=== PATIENT | female | born 1960 | race Caucasian/White ===

== ENCOUNTER → 2017-12-23 | Outpatient (CLI) | payer OTHER ==
--- NOTE | 2017-12-23 15:12 | CT ---
EXAMINATION TYPE: CT abdomen w con DATE OF EXAM: 12/23/2017 COMPARISON: NONE HISTORY: Right upper quadrant pain, fatty liver CT DLP: 2040.0 mGycm CONTRAST: CT scan of the abdomen is performed with Oral Contrast and with IV Contrast, patient injected with 10 0 mL of Omnipaque 300. FINDINGS: LUNG BASES-: No visible nodule. No infiltrate. LIVER/GB: No calcified gallstones. No space occupying hepatic lesion. Biliary tree is of normal ca liber. PANCREAS: No inflammation. No distinct mass. SPLEEN: No splenic enlargement. No lesion seen. ADRENALS: No nodule. No thickening. KIDNEYS/BLADDER: No hydronephrosis. No nephrolithiasis. No distinct renal mass. Urinary bladder g rossly unremarkable. BOWEL: Visualized bowel loops appear to be caliber. No evidence for inflammatory process or free air. Small sliding-type hiatal hernia noted. LYMPH NODES: No greater than 1cm abdominal or pelvic lymph nodes are appreciated. AORTA: No significant abnormality. OSSEOUS STRUCTURES: No significant abnormality is seen. OTHER: No significant additional abnormality is seen. IMPRESSION: 1. Small sliding-type hiatal hernia noted.
== END | disposition home or self-care (01) ==
LOC: RADCTMAIN 13:41
PROVIDERS: ATTEND Family Medicine
DX: K44.9 Diaphragmatic hernia without obstruction or gangrene (principal)
CPT/HCPCS: 74160; Q9967

== ENCOUNTER 2018-03-27 11:40 | Day surgery (SDC) | payer OTHER ==
[2018-03-26 11:56] VITALS: BMI 46.5
[~2018-03-27 11:40] MED LIST: LACTATED RINGERS 1,000 ML IV SCH
--- NOTE | 2018-03-27 11:42 | P.GSHP ---
History of Present Illness H&P Date: 03/27/18 CHIEF COMPLAINT: Colon screen HISTORY OF PRESENT ILLNESS: The patient is a 57-year-old female who presents for colon screen. Lower endoscopy was offered for further evaluation and management. PAST MEDICAL HISTORY: Please see list. PAST SURGICAL HISTORY: Please see list. MEDICATIONS: Please see list. ALLERGIES: Please see list. SOCIAL HISTORY: No illicit drug use FAMILY HISTORY: No reports of Crohn disease or ulcerative colitis. REVIEW OF ORGAN SYSTEMS: CONSTITUTIONAL: No reports of fevers or chills. PHYSICAL EXAM: VITAL SIGNS: Stable GENERAL: Well-developed pleasant in no acute distress. HEENT: No scleral icterus. Extraocular movements grossly intact. Moist buccal mucosa. NECK: Supple without lymphadenopathy. CHEST: Unlabored respirations. Equal bilateral excursions. CARDIOVASCULAR: Regular rate and rhythm. Distal 2+ pulses. ABDOMEN: Soft, nontender, nondistended. MUSCULOSKELETAL: No clubbing, cyanosis, or edema. ASSESSMENT: 1. Colon screen. PLAN: 1. Recommend proceeding with a lower endoscopy Past Medical History Past Medical History: Asthma, GERD/Reflux, Hypertension Additional Past Medical History / Comment(s): fatty liver History of Any Multi-Drug Resistant Organisms: None Reported Past Surgical History: Appendectomy Past Anesthesia/Blood Transfusion Reactions: No Reported Reaction Smoking Status: Former smoker - Past Family History Father Additional Family Medical History / Comment(s): hx 50 colon polyps Mother Family Medical History: Dementia, Hypertension Medications and Allergies Home Medications Medication Instructions Recorded Confirmed Type Escitalopram [Lexapro] 20 mg PO QAM 09/16/14 03/26/18 History Hydrochlorothiazide [Hydrodiuril] 25 mg PO DAILY 09/16/14 03/26/18 History Omeprazole [PriLOSEC] 20 mg PO AC-BRKFST 09/16/14 03/26/18 History amLODIPine [Norvasc] 5 mg PO QAM 09/16/14 03/26/18 History Albuterol Sulfate [Proair Hfa] 1 - 2 puff INHALATION Q6HR PRN 03/26/18 03/26/18 History Cholecalciferol (Vitamin D3) 2,000 unit PO DAILY 03/26/18 03/26/18 History [Vitamin D3] Naltrexone HCl/Bupropion HCl 1 each PO DAILY 03/26/18 03/26/18 History [Contrave ER 8-90 mg Tablet] [place]-3 Fatty Acids/Fish Oil [Fish 1 tab PO DAILY 03/26/18 03/26/18 History Oil 1,000 mg Softgel] Vitamin E (Dl,Tocopheryl Acet) 400 unit PO DAILY 03/26/18 03/26/18 History [Vitamin E] rOPINIRole HCL [Requip] 0.25 mg PO HS 03/26/18 03/26/18 History Allergies Allergy/AdvReac Type Severity Reaction Status Date / Time No Known Allergies Allergy Verified 03/26/18 11:46
[2018-03-27 12:13] VITALS: TEMP 98.8
[2018-03-27] MEDS ORDERED: LIDOCAINE 1% INJ 10MG/ML (20 ML MDV) ONE (12:40)
[2018-03-27] MEDS ORDERED: PROPOFOL 10 MG/ML 20 ML VIAL IV ONE (12:40)
--- NOTE | 2018-03-27 13:09 | P.PCN ---
Date of Procedure: 03/27/18 Description of Procedure: PREOPERATIVE DIAGNOSIS: Colonoscopy screening. Family history of colon cancer Personal history of polyps POSTOPERATIVE DIAGNOSIS: Colonoscopy screening. Family history of colon cancer Personal history of polyps Sigmoid polyp adenoma OPERATION: Colonoscopy to the ileocecal valve and appendiceal orifice. Colonoscopy with cold biopsy forcep at 25 cm. SURGEON: Leisa Moreno MD. ANESTHESIA: MAC. INDICATIONS: The patient is a 57-year-old female who presents for colonoscopy screening. Last colonoscopy was 5 years ago. Benefits and risks were described and informed consent was obtained. DESCRIPTION OF PROCEDURE: The patient had undergone Gatorade, MiraLAX and Dulcolax prep. She had been brought into the operating room and laid in the left lateral decubitus position. After adequate intravenous sedation, the rectum was examined with 2% lidocaine jelly. No external hemorrhoids were encountered. The rectal tone was within normal limits. No lesions were palpated in the rectal vault. An Olympus colonoscope was advanced until the ileocecal valve and appendiceal orifice were clearly viewed. The prep was adequate with moderate liquid stool requiring irrigation. The scope was removed with visualization of mucosal fold. No scattered diverticulosis was encountered. Sigmoid adenoma polyp 3 mm found at 25 cm from anal verge and removed using cold biopsy forcep. No evidence of focal colitis was found. Retroflexion of the scope demonstrated no grade 1 internal hemorrhoids. The colon was desufflated. The patient had tolerated the procedure well. Withdrawal time was over 6 minutes. FINDINGS: No internal hemorrhoids. No external prolapsed hemorrhoids. No arteriovenous malformations. Sigmoid adenoma polyp 3 mm found at 25 cm from anal verge and removed using cold biopsy forceps. No focal colitis. No sigmoid diverticulosis RECOMMENDATIONS: Laparoscope repeat, 3 years, 2020 Plan - Discharge Summary New Discharge Prescriptions: No Action amLODIPine [Norvasc] 5 mg PO QAM Omeprazole [PriLOSEC] 20 mg PO AC-BRKFST Hydrochlorothiazide [Hydrodiuril] 25 mg PO DAILY Escitalopram [Lexapro] 20 mg PO QAM Cholecalciferol (Vitamin D3) [Vitamin D3] 2,000 unit PO DAILY Albuterol Sulfate [Proair Hfa] 1 - 2 puff INHALATION Q6HR PRN PRN Reason: sob rOPINIRole HCL [Requip] 0.25 mg PO HS [place]-3 Fatty Acids/Fish Oil [Fish Oil 1,000 mg Softgel] 1 tab PO DAILY Naltrexone HCl/Bupropion HCl [Contrave ER 8-90 mg Tablet] 1 each PO DAILY Vitamin E (Dl,Tocopheryl Acet) [Vitamin E] 400 unit PO DAILY Discharge Medication List Escitalopram [Lexapro] 20 mg PO QAM 09/16/14 [History] Hydrochlorothiazide [Hydrodiuril] 25 mg PO DAILY 09/16/14 [History] Omeprazole [PriLOSEC] 20 mg PO AC-BRKFST 09/16/14 [History] amLODIPine [Norvasc] 5 mg PO QAM 09/16/14 [History] Albuterol Sulfate [Proair Hfa] 1 - 2 puff INHALATION Q6HR PRN 03/26/18 [History] Cholecalciferol (Vitamin D3) [Vitamin D3] 2,000 unit PO DAILY 03/26/18 [History] Naltrexone HCl/Bupropion HCl [Contrave ER 8-90 mg Tablet] 1 each PO DAILY [History] [place]-3 Fatty Acids/Fish Oil [Fish Oil 1,000 mg Softgel] 1 tab PO DAILY [History] Vitamin E (Dl,Tocopheryl Acet) [Vitamin E] 400 unit PO DAILY 03/26/18 [History] rOPINIRole HCL [Requip] 0.25 mg PO HS 03/26/18 [History]
[2018-03-27 13:21] VITALS: BP 137/77; PULSE 72; RESP 16
== END 2018-03-27 13:48 | disposition home or self-care (01) ==
LOC: ORWHC2ENDO 11:40
PROVIDERS: ATTEND Surgery Plastic and Reconstructive Surgery
DX: Z12.11 Encounter for screening for malignant neoplasm of colon (principal); D12.5 Benign neoplasm of sigmoid colon; Z86.010 Personal history of colon polyps; Z83.71 Family history of colonic polyps; J45.909 Unspecified asthma, uncomplicated; K21.9 Gastro-esophageal reflux disease without esophagitis; I10 Essential (primary) hypertension; K76.0 Fatty (change of) liver, not elsewhere classified; G47.33 Obstructive sleep apnea (adult) (pediatric); Z99.89 Dependence on other enabling machines and devices; Z79.899 Other long term (current) drug therapy; Z87.891 Personal history of nicotine dependence
CPT/HCPCS: 88305; 45380; J2001; J2704

== ENCOUNTER → 2020-06-06 | Outpatient (CLI) | payer OTHER ==
--- NOTE | 2020-06-06 12:52 | MR ---
EXAMINATION TYPE: MR shoulder RT wo con DATE OF EXAM: 06/06/2020 11:54 AM COMPARISON: NONE HISTORY: R shoulder pain TECHNIQUE: Multiplanar multispin echo imaging of the right shoulder was performed. FINDINGS: Rotator cuff : Thickening and heterogeneity of the supraspinatus tendon with chronic tendinopathy. No evidence for partial or full-thickness tear at this time. The subscapularis constituent of the rotat or cuff is intact. Bursa: No bursal effusion or thickening is seen. Musculature: There is no muscular tear, contusion, or atrophy. Acromioclavicular joint : Subacromial spur results in mild impingement. Moderate AC joint arthropathy . Osseous structures : There are no fractures or regions of abnormal bone marrow signal intensity. Cyst ic degenerative change of the greater tuberosity. Long biceps tendon : The biceps tendon is normally situated within the bicipital groove. No complete or partial biceps tendon tear is present. Glenohumeral Joint fluid : There is no glenohumeral joint effusion. Cartilage and Bone : No focal hyaline cartilage defects are noted. No Hill-Sachs, reverse Hill-Sachs, or bony Bankart lesions are seen. Labrum : There are no SLAP or soft tissue Bankart lesions. No paralabral cysts are seen. OTHER FINDINGS : none IMPRESSION: 1. Chronic tendinopathy supraspinatus tendon secondary to a mild impingement.
== END | disposition home or self-care (01) ==
LOC: RADMRIMAIN 11:16
PROVIDERS: ATTEND Orthopaedic Surgery
DX: M75.81 Other shoulder lesions, right shoulder (principal); M75.41 Impingement syndrome of right shoulder

== ENCOUNTER 2020-06-13 01:34 | Emergency (ER) | payer OTHER ==
[2020-06-13 01:41] VITALS: TEMP 98.2
[2020-06-13] MEDS ORDERED: SODIUM CHLORIDE 0.9% 500 ML 500 ML IV STA (02:05)
[2020-06-13 02:13] LABS: Basophils # (A) 0.1 k/uL (0-0.2); Basophils % (A) 1 %; Eosinophils # (A) 0.3 k/uL (0-0.7); Eosinophils % (A) 3 %; HCT 44.6 % (34.0-46.0); HGB 14.7 gm/dL (11.4-16.0); Lymphocytes # (A) 4.5 k/uL (1.0-4.8); Lymphocytes % (A) 41 %; MCH 30.5 pg (25.0-35.0); MCHC 33.1 g/dL (31.0-37.0); MCV 92.3 fL (80.0-100.0); Mean Platelet Volume 8.6; Monocytes # (A) 0.5 k/uL (0-1.0); Monocytes % (A) 5 %; Neutrophils # (A) 5.3 k/uL (1.3-7.7); Neutrophils % (A) 48 %; Platelet Count 257 k/uL (150-450); RBC 4.83 m/uL (3.80-5.40); WBC 10.8 k/uL (3.8-10.6)
--- NOTE | 2020-06-13 02:13 | ED ---
General Adult HPI - General Source: patient, RN notes reviewed Mode of arrival: wheelchair Limitations: no limitations <Stiven Pace P - Last Filed: 06/13/20 02:15> <Keyla Guajardo P - Last Filed: 06/13/20 05:42> - General Chief complaint: Chest Pain Stated complaint: high b/p, shakes Time Seen by Provider: 06/13/20 01:42 - History of Present Illness Initial comments: 59-year-old female with a past medical history of asthma, GERD, hypertension presents to the emergency department for a chief complaint of chest pain. Patient states prior to arrival she had a sudden onset left-sided sharp chest pain that lasted about 15 minutes. Patient states afterwards she started shaking uncontrollably. She checked her temperature and it was 100.2. 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 She denies shortness of breath. Patient reports she checked her bl ood pressure and it was high. She did not take one of her blood pressure medications today.Patient has no other complaints at this time including shortness of breath, abdominal pain, nausea or vomiting, headache, or visual changes. (Stiven Pace) - Related Data Home Medications Medication Instructions Recorded Confirmed Escitalopram [Lexapro] 20 mg PO QAM 09/16/14 03/27/18 Omeprazole [PriLOSEC] 20 mg PO AC-BRKFST 09/16/14 03/27/18 amLODIPine [Norvasc] 5 mg PO QAM 09/16/14 03/27/18 hydroCHLOROthiazide [Hydrodiuril] 25 mg PO DAILY 09/16/14 03/27/18 Albuterol Sulfate [Proair Hfa] 1 - 2 puff INHALATION Q6HR PRN 03/26/18 03/27/18 Cholecalciferol (Vitamin D3) 2,000 unit PO DAILY 03/26/18 03/26/18 [Vitamin D3] Naltrexone HCl/Bupropion HCl 1 each PO DAILY 03/26/18 03/27/18 [Contrave ER 8-90 mg Tablet] [place]-3 Fatty Acids/Fish Oil [Fish 1 tab PO DAILY 03/26/18 03/26/18 Oil 1,000 mg Softgel] Vitamin E (Dl,Tocopheryl Acet) 400 unit PO DAILY 03/26/18 03/26/18 [Vitamin E] rOPINIRole HCL [Requip] 0.25 mg PO HS 03/26/18 03/27/18 Allergies Allergy/AdvReac Type Severity Reaction Status Date / Time sulfamethoxazole Allergy Itching Verified 06/13/20 01:41 [From Bactrim] trimethoprim [From Bactrim] Allergy Itching Verified 06/13/20 01:41 Review of Systems ROS Other: All systems not noted in ROS Statement are negative. <Stiven Pace P - Last Filed: 06/13/20 02:15> ROS Other: All systems not noted in ROS Statement are negative. <Keyla Guajardo P - Last Filed: 06/13/20 05:42> ROS Statement: Those systems with pertinent positive or pertinent negative responses have been documented in the HPI. Past Medical History Past Medical History: Asthma, GERD/Reflux, Hypertension History of Any Multi-Drug Resistant Organisms: None Reported Past Surgical History: Appendectomy Additional Past Surgical History / Comment(s): toe Past Psychological History: No Psychological Hx Reported Smoking Status: Current every day smoker Past Alcohol Use History: None Reported Past Drug Use History: None Reported <Stiven Pace P - Last Filed: 06/13/20 02:15> General Exam Limitations: no limitations General appearance: alert, in no apparent distress Head exam: Present: atraumatic, normocephalic, normal inspection Eye exam: Present: normal appearance, PERRL, EOMI. Absent: scleral icterus, conjunctival injection, periorbital swelling ENT exam: Present: normal exam, mucous membranes moist Neck exam: Present: normal inspection, full ROM. Absent: tenderness, meningismus, lymphadenopathy Respiratory exam: Present: normal lung sounds bilaterally. Absent: respiratory distress, wheezes, rales, rhonchi, stridor Cardiovascular Exam: Present: regular rate, normal rhythm, normal heart sounds. Absent: systolic murmur, diastolic murmur, rubs, gallop, clicks GI/Abdominal exam: Present: soft, normal bowel sounds. Absent: distended, tenderness, guarding, rebound, rigid Neurological exam: Present: alert <Stiven Pace P - Last Filed: 06/13/20 02:15> Course Vital Signs 06/13/20 06/13/20 06/13/20 01:38 01:54 02:25 Temperature 98.2 F Pulse Rate 101 H 80 Pulse Rate [ 89 [employer] ] Respiratory 20 18 Rate Blood Pressure 172/81 137/75 O2 Sat by Pulse 98 98 Oximetry 06/13/20 04:53 Temperature Pulse Rate 71 Pulse Rate [ [employer] ] Respiratory 18 Rate Blood Pressure 118/69 O2 Sat by Pulse 95 Oximetry EKG Findings - EKG Comments: EKG Findings:: normal sinus rhythm, ventricular rate 79, OH interval 150, QTC of 447 <Stiven Pace P - Last Filed: 06/13/20 02:15> Medical Decision Making - Lab Data Result diagrams: 06/13/20 01:58 <Stiven Pace - Last Filed: 06/13/20 02:15> - Lab Data Result diagrams: 06/13/20 01:58 06/13/20 01:58 <Keyla Guajardo - Last Filed: 06/13/20 05:42> - Medical Decision Making Patient care was signed out to me at end of shift, the 59-year-old female who presented here with and episode of sharp left sided chest pain, fever and hypertension. 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 Patients EKG and inital workup is unremarkable, she was asymptomatic in the emergency Department her blood pressure normalized. Patient was agreeable to remaining in the emergency department for 2 troponins. The time of sign out repeat troponin was pending. Repeat troponin resulted was negative. A which the room to discuss results of patient's, patient was sleeping comfortably in no acute distress. Results were discussed repeat vital signs were obtained and discussed with patient. This time she is comfortable with plan for discharge home and continued outpatient follow-up. (Keyla Guajardo) - Lab Data Lab Results 06/13/20 06/13/20 06/13/20 Range/Units 01:58 01:58 01:58 WBC 10.8 H (3.8-10.6) k/uL RBC 4.83 (3.80-5.40) m/uL Hgb 14.7 (11.4-16.0) gm/dL Hct 44.6 (34.0-46.0) % MCV 92.3 (80.0-100.0) fL MCH 30.5 (25.0-35.0) pg MCHC 33.1 (31.0-37.0) g/dL RDW 13.0 (11.5-15.5) % Plt Count 257 (150-450) k/uL Neutrophils % 48 % Lymphocytes % 41 % Monocytes % 5 % Eosinophils % 3 % Basophils % 1 % Neutrophils # 5.3 (1.3-7.7) k/uL Lymphocytes # 4.5 (1.0-4.8) k/uL Monocytes # 0.5 (0-1.0) k/uL Eosinophils # 0.3 (0-0.7) k/uL Basophils # 0.1 (0-0.2) k/uL PT 9.9 (9.0-12.0) sec INR 0.9 (<1.2) APTT 26.4 (22.0-30.0) sec D-Dimer 0.31 (<0.60) mg/L FEU Sodium 135 L (137-145) mmol/L Potassium 3.5 (3.5-5.1) mmol/L Chloride 98 (98-107) mmol/L Carbon Dioxide 29 (22-30) mmol/L Anion Gap 8 mmol/L BUN 12 (7-17) mg/dL Creatinine 0.52 (0.52-1.04) mg/dL Est GFR (CKD-EPI)AfAm >90 (>60 ml/min/1.73 sqM) Est GFR (CKD-EPI)NonAf >90 (>60 ml/min/1.73 sqM) Glucose 131 H (74-99) mg/dL Calcium 9.4 (8.4-10.2) mg/dL Magnesium 1.9 (1.6-2.3) mg/dL Total Bilirubin 0.3 (0.2-1.3) mg/dL AST 24 (14-36) U/L ALT 19 (4-34) U/L Alkaline Phosphatase 80 (38-126) U/L Troponin I (0.000-0.034) ng/mL Total Protein 7.1 (6.3-8.2) g/dL Albumin 4.6 (3.5-5.0) g/dL 06/13/20 06/13/20 Range/Units 01:58 04:53 WBC (3.8-10.6) k/uL RBC (3.80-5.40) m/uL Hgb (11.4-16.0) gm/dL Hct (34.0-46.0) % MCV (80.0-100.0) fL MCH (25.0-35.0) pg MCHC (31.0-37.0) g/dL RDW (11.5-15.5) % Plt Count (150-450) k/uL Neutrophils % % Lymphocytes % % Monocytes % % Eosinophils % % Basophils % % Neutrophils # (1.3-7.7) k/uL Lymphocytes # (1.0-4.8) k/uL Monocytes # (0-1.0) k/uL Eosinophils # (0-0.7) k/uL Basophils # (0-0.2) k/uL PT (9.0-12.0) sec INR (<1.2) APTT (22.0-30.0) sec D-Dimer (<0.60) mg/L FEU Sodium (137-145) mmol/L Potassium (3.5-5.1) mmol/L Chloride (98-107) mmol/L Carbon Dioxide (22-30) mmol/L Anion Gap mmol/L BUN (7-17) mg/dL Creatinine (0.52-1.04) mg/dL Est GFR (CKD-EPI)AfAm (>60 ml/min/1.73 sqM) Est GFR (CKD-EPI)NonAf (>60 ml/min/1.73 sqM) Glucose (74-99) mg/dL Calcium (8.4-10.2) mg/dL Magnesium (1.6-2.3) mg/dL Total Bilirubin (0.2-1.3) mg/dL AST (14-36) U/L ALT (4-34) U/L Alkaline Phosphatase (38-126) U/L Troponin I <0.012 <0.012 (0.000-0.034) ng/mL Total Protein (6.3-8.2) g/dL Albumin (3.5-5.0) g/dL Disposition <Stiven Pace P - Last Filed: 06/13/20 02:15> Is patient prescribed a controlled substance at d/c from ED?: No <Keyla Guajardo P - Last Filed: 06/13/20 05:42> Clinical Impression: Atypical chest pain Disposition: HOME SELF-CARE Condition: Stable Instructions (If sedation given, give patient instructions): Chest Pain (ED) Referrals: Joseph Lyle DO [Primary Care Provider] - 1-2 days
[2020-06-13] MEDS ORDERED: hydroCHLOROthiazide 25 MG TAB PO STA (02:14)
[2020-06-13 02:17] LABS: ALT 19 U/L (4-34); AST 24 U/L (14-36); African American GFR (CKD) >90 (>60 ml/min/1.73 sqM); Albumin 4.6 g/dL (3.5-5.0); Alkaline Phosphatase 80 U/L (38-126); Anion Gap 8 mmol/L; Blood Urea Nitrogen 12 mg/dL (7-17); Calcium 9.4 mg/dL (8.4-10.2); Carbon Dioxide 29 mmol/L (22-30); Chloride 98 mmol/L (98-107); Glucose 131 mg/dL (74-99); Magnesium 1.9 mg/dL (1.6-2.3); Non-African American GFR(CKD) >90 (>60 ml/min/1.73 sqM); Potassium 3.5 mmol/L (3.5-5.1); Sodium 135 mmol/L (137-145); Total Bilirubin 0.3 mg/dL (0.2-1.3); Total Protein 7.1 g/dL (6.3-8.2)
[2020-06-13 02:22] LABS: D-Dimer 0.31 mg/L FEU (<0.60); INR 0.9 (<1.2); Partial Thromboplastin Time 26.4 sec (22.0-30.0); Prothrombin Time 9.9 sec (9.0-12.0)
[2020-06-13 02:27] VITALS: RESP 18
--- NOTE | 2020-06-13 02:28 | XR ---
EXAMINATION TYPE: XR chest 2V DATE OF EXAM: 06/13/2020 COMPARISON: NONE HISTORY: Chest pain TECHNIQUE: FINDINGS: Heart is normal. Lungs are clear of consolidation. There are no hilar masses. Costophrenic angles are clear. Thoracic aorta is atheromatous. IMPRESSION: No active cardiopulmonary disease. Atheromatous aorta.
[2020-06-13 04:53] VITALS: BP 118/69; PULSE 71
== END 2020-06-13 05:35 | disposition home or self-care (01) ==
LOC: EC 01:34
DX: R07.89 Other chest pain (principal); Z20.828 Contact with and (suspected) exposure to other viral communicable diseases; K21.9 Gastro-esophageal reflux disease without esophagitis; I10 Essential (primary) hypertension; J45.909 Unspecified asthma, uncomplicated; F17.200 Nicotine dependence, unspecified, uncomplicated; Z79.899 Other long term (current) drug therapy; Z88.1 Allergy status to other antibiotic agents; Z88.2 Allergy status to sulfonamides
CPT/HCPCS: 36415; 93005; 85379; 80053; 83735; 84484; 85025; 85610; 85730; 71046; 99285; 96360; U0003

== ENCOUNTER → 2020-06-30 | Outpatient (CLI) | payer OTHER ==
--- NOTE | 2020-06-30 11:59 | NM ---
EXAMINATION TYPE: NM stress cardiolite complete DATE OF EXAM: 06/30/2020 COMPARISON: NONE HISTORY: Precordial chest pain and abnormal EKG. TECHNIQUE: After the intravenous administration of 10.56 mCi Tc 99m Sestamibi - Rest images obtained 45 minutes post injection. The patient exercised using a MONICA protocol and 1 minute prior to peak exercise was injected with 25.8 mCi Tc 99m Sestamibi - Stress images obtained 30 minutes post inject ion. FINDINGS: Targeted heart rate was achieved during performance of the study. Review of stress and rest SPECT eulalia ges demonstrates decreased perfusion involving the cardiac apex on stress imaging. Stress-induced isc hemia is difficult to exclude. Gated analysis shows normal wall motion with an estimated left ventric ular ejection fraction of 72 %. IMPRESSION: I cannot exclude stress-induced ischemia as noted above.
--- NOTE | 2020-06-30 21:00 | EST ---
EXERCISE STRESS AGE: 59 SEX: Female HT: 65" WT: 275 PROTOCOL: Cardiolite Vincent STAGE: III DURATION OF EXERCISE: 7:00 minutes HEART RATE REST: 75 BLOOD PRESSURE REST: 129/78 MAXIMUM HEART RATE ACHIEVED: 156 MAXIMUM BLOOD PRESSURE: 202/89 85% MPHR: 139 100% MPHR: 163 METS: 8.5 INDICATIONS: Chest pain. CLINICAL INFORMATION: Heart rate 75, pressure 129/78 mmHg. Baseline EKG showed sinus mechanism. The patient exercised on the treadmill according to Vincent protocol for a total of 7 minutes and achieved 8.5 METS. Max heart rate was 143, which is about 96% of maximum predicted heart rate. Maximum blood pressure was 202/89 mmHg. Clinically the patient did not have any symptoms of chest pain or chest discomfort during the testing or on recovery. The EKG did not show any significant ST or T-wave abnormalities concerning for ischemia. CONCLUSION: 1. Good exercise tolerance. 2. Normal EKG in response to exercise. 3. Overall normal exercise treadmill stress test for the patient. MMODL / IJN: [id number] /
== END | disposition home or self-care (01) ==
LOC: RADNMMAIN 08:34
PROVIDERS: ATTEND Family Medicine
DX: R07.9 Chest pain, unspecified (principal)
CPT/HCPCS: 93017; 78452; A9500

== ENCOUNTER → 2020-08-15 | Outpatient (CLI) | payer OTHER ==
--- NOTE | 2020-08-16 11:50 | MM ---
Reason for exam: screening (asymptomatic). Last mammogram was performed 1 year and 5 months ago. History: Patient is postmenopausal. Took hormonal contraceptives for 20 years. Physical Findings: A clinical breast exam by your physician is recommended on an annual basis and results should be correlated with mammographic findings. MG Screening Mammo w CAD Bilateral CC and MLO view(s) were taken. Prior study comparison: March 13, 2019, mammogram, performed at [facility]. The breast tissue is almost entirely fat. No significant changes when compared with prior studies. ASSESSMENT: Benign, BI-RAD 2 RECOMMENDATION: Routine screening mammogram of both breasts in 1 year.
== END | disposition home or self-care (01) ==
LOC: RADMAMWWP 16:24
PROVIDERS: ATTEND Family Medicine
DX: Z12.31 Encounter for screening mammogram for malignant neoplasm of breast (principal)
CPT/HCPCS: 77067

== ENCOUNTER 2021-09-24 06:58 | Day surgery (SDC) | payer OTHER ==
[2021-09-21 08:53] VITALS: BMI 49.4
[2021-09-24] MEDS ORDERED: LACTATED RINGERS 1,000 ML IV SCH (07:09)
--- NOTE | 2021-09-24 07:13 | P.GSHP ---
History of Present Illness H&P Date: 09/24/21 CHIEF COMPLAINT: Colon screen HISTORY OF PRESENT ILLNESS: The patient is a 61-year-old female who presents for colon screen. Lower endoscopy was offered for further evaluation and management. PAST MEDICAL HISTORY: Please see list. PAST SURGICAL HISTORY: Please see list. MEDICATIONS: Please see list. ALLERGIES: Please see list. SOCIAL HISTORY: No illicit drug use FAMILY HISTORY: No reports of Crohn disease or ulcerative colitis. REVIEW OF ORGAN SYSTEMS: CONSTITUTIONAL: No reports of fevers or chills. PHYSICAL EXAM: VITAL SIGNS: Stable GENERAL: Well-developed pleasant in no acute distress. HEENT: No scleral icterus. Extraocular movements grossly intact. Moist buccal mucosa. NECK: Supple without lymphadenopathy. CHEST: Unlabored respirations. Equal bilateral excursions. CARDIOVASCULAR: Regular rate and rhythm. Distal 2+ pulses. ABDOMEN: Soft, nontender, nondistended. MUSCULOSKELETAL: No clubbing, cyanosis, or edema. ASSESSMENT: 1. Colon screen. PLAN: 1. Recommend proceeding with a lower endoscopy Past Medical History Past Medical History: Asthma, GERD/Reflux, Hypertension, Sleep Apnea/CPAP/BIPAP Additional Past Medical History / Comment(s): Does not use CPAP, colonoscopy History of Any Multi-Drug Resistant Organisms: None Reported Past Surgical History: Appendectomy Additional Past Surgical History / Comment(s): toe surgery. Past Anesthesia/Blood Transfusion Reactions: No Reported Reaction Smoking Status: Former smoker - Past Family History Mother Family Medical History: No Reported History Medications and Allergies Home Medications Medication Instructions Recorded Confirmed Type Omeprazole [PriLOSEC] 20 mg PO AC-BRKFST 09/16/14 09/21/21 History amLODIPine [Norvasc] 10 mg PO QAM 09/16/14 09/21/21 History hydroCHLOROthiazide [Hydrodiuril] 25 mg PO DAILY 09/16/14 09/21/21 History Albuterol Sulfate [Proair Hfa] 1 - 2 puff INHALATION Q6HR PRN 03/26/18 09/21/21 History Cholecalciferol (Vitamin D3) 2,000 unit PO DAILY 03/26/18 09/21/21 History [Vitamin D3] [place]-3 Fatty Acids/Fish Oil [Fish 1 tab PO DAILY 03/26/18 09/21/21 History Oil 1,000 mg Softgel] Vitamin E (Dl,Tocopheryl Acet) 400 unit PO DAILY 03/26/18 09/21/21 History [Vitamin E] rOPINIRole HCL [Requip] 0.25 mg PO HS 03/26/18 09/21/21 History Aspirin 81 mg PO DAILY 09/21/21 09/21/21 History DULoxetine HCL [Cymbalta] 60 mg PO HS 09/21/21 09/21/21 History Montelukast Sodium [Singulair] 10 mg PO HS 09/21/21 09/21/21 History Allergies Allergy/AdvReac Type Severity Reaction Status Date / Time sulfamethoxazole Allergy Itching Verified 09/21/21 08:40 [From Bactrim] trimethoprim [From Bactrim] Allergy Itching Verified 09/21/21 08:40
[2021-09-24 07:39] VITALS: RESP 16; TEMP 98.1
[2021-09-24] MEDS ORDERED: PROPOFOL 10 MG/ML 20 ML VIAL IV ONE (07:54)
--- NOTE | 2021-09-24 08:16 | P.PCN ---
Date of Procedure: 09/24/21 Description of Procedure: PREOPERATIVE DIAGNOSIS: Personal history of colon polyps Colonoscopy screening POSTOPERATIVE DIAGNOSIS: Tubular adenoma hepatic flexure Tubular adenoma sigmoid colon OPERATION: Colonoscopy to the ileocecal valve and appendiceal orifice, cecum Colonoscopy with hot snare polypectomy SURGEON: Leisa Moreno MD. ANESTHESIA: MAC. INDICATIONS: The patient is an 61-year-old female who presents personal history of colon polyps. Last colonoscopy 5 years. Benefits and risks were described and informed consent was obtained. DESCRIPTION OF PROCEDURE: The patient had undergone Sutab prep. The patient had been brought into the operating room and laid in the left lateral decubitus position. After adequate intravenous sedation, the rectum was examined with 2% lidocaine jelly. The prostate was unremarkable. No external hemorrhoids were encountered. The rectal tone was within normal limits. No lesions were palpated in the rectal vault. An Olympus colonoscope was advanced until the cecum, ileocecal valve and appendiceal orifice were clearly viewed. The prep was fair. No sigmoid diverticulosis was encountered. Colonic polyps were found and removed. No evidence of focal colitis was found. Retroflexion of the scope demonstrated grade 2 internal hemorrhoids without active bleeding or inflammation. The colon was desufflated. The patient had tolerated the procedure well. Withdrawal time was over 6 minutes. FINDINGS: Aronchick preparation quality scale 3 (1-5) Internal hemorrhoids, grade 1 No external hemorrhoids, grade 2 No arteriovenous malformations. Sigmoid diverticulosis Removal of 2 polyps: - Snare polypectomy 30 cm from the anal verge, 5 mm tubulovillous adenoma polyp, sigmoid colon - Snare polypectomy hepatic flexure, 5 mm flat villous adenoma polyp. No focal colitis. RECOMMENDATIONS: Repeat colonoscopy 5 years, 2025 Plan - Discharge Summary Discharge Rx Participant: No New Discharge Prescriptions: No Action amLODIPine [Norvasc] 10 mg PO QAM Omeprazole [PriLOSEC] 20 mg PO AC-BRKFST hydroCHLOROthiazide [Hydrodiuril] 25 mg PO DAILY Cholecalciferol (Vitamin D3) [Vitamin D3] 2,000 unit PO DAILY Albuterol Sulfate [Proair Hfa] 1 - 2 puff INHALATION Q6HR PRN PRN Reason: sob rOPINIRole HCL [Requip] 0.25 mg PO HS [place]-3 Fatty Acids/Fish Oil [Fish Oil 1,000 mg Softgel] 1 tab PO DAILY Vitamin E (Dl,Tocopheryl Acet) [Vitamin E] 400 unit PO DAILY DULoxetine HCL [Cymbalta] 60 mg PO HS Aspirin 81 mg PO DAILY Montelukast Sodium [Singulair] 10 mg PO HS Discharge Medication List Omeprazole [PriLOSEC] 20 mg PO AC-BRKFST 09/16/14 [History] amLODIPine [Norvasc] 10 mg PO QAM 09/16/14 [History] hydroCHLOROthiazide [Hydrodiuril] 25 mg PO DAILY 09/16/14 [History] Albuterol Sulfate [Proair Hfa] 1 - 2 puff INHALATION Q6HR PRN 03/26/18 [History] Cholecalciferol (Vitamin D3) [Vitamin D3] 2,000 unit PO DAILY 03/26/18 [History] He[place]rick-3 Fatty Acids/Fish Oil [Fish Oil 1,000 mg Softgel] 1 tab PO DAILY 03/26/18 [History] Vitamin E (Dl,Tocopheryl Acet) [Vitamin E] 400 unit PO DAILY 03/26/18 [History] rOPINIRole HCL [Requip] 0.25 mg PO HS 03/26/18 [History] Aspirin 81 mg PO DAILY 09/21/21 [History] DULoxetine HCL [Cymbalta] 60 mg PO HS 09/21/21 [History] Montelukast Sodium [Singulair] 10 mg PO HS 09/21/21 [History]
[2021-09-24 08:33] VITALS: BP 104/66; PULSE 75
== END 2021-09-24 08:47 | disposition home or self-care (01) ==
LOC: ORWHC2ENDO 06:58
PROVIDERS: ATTEND Surgery Plastic and Reconstructive Surgery
DX: Z12.11 Encounter for screening for malignant neoplasm of colon (principal); K21.9 Gastro-esophageal reflux disease without esophagitis; D12.3 Benign neoplasm of transverse colon; D12.5 Benign neoplasm of sigmoid colon; G47.30 Sleep apnea, unspecified; I10 Essential (primary) hypertension; J45.909 Unspecified asthma, uncomplicated; Z79.82 Long term (current) use of aspirin; Z79.899 Other long term (current) drug therapy; Z87.19 Personal history of other diseases of the digestive system; Z87.891 Personal history of nicotine dependence; Z88.1 Allergy status to other antibiotic agents; Z88.2 Allergy status to sulfonamides; Z90.49 Acquired absence of other specified parts of digestive tract
CPT/HCPCS: 45385; 88305; J2704

== ENCOUNTER → 2023-07-25 | Outpatient (CLI) | payer OTHER ==
--- NOTE | 2023-07-28 08:38 | MM ---
Reason for Exam: Screening (asymptomatic). Last mammogram was performed 2 year(s) and 11 month(s) ago. Patient History: Menarche at age 13. First Full-Term at age 21. Postmenopausal. Patient used Hormonal Contraceptives for 20 years. Risk Values: Mindi 5 year model risk: 1.1%. NCI Lifetime model risk: 5.8%. Prior Study Comparison: 03/13/2019 Screening Mammogram, [facility]. 08/15/2020 Bilateral Screening Mammogram, [facility]. Tissue Density: The breast tissue is almost entirely fat. Findings: Analyzed By CAD. There is no suspicious group of microcalcifications or new suspicious mass. Overall Assessment: Negative, BI-RAD 1 Management: Screening Mammogram of both breasts in [address] [facility] will attempt to contact patient to return for supplemental views and ultrasound if indicated. Patient should continue monthly self-breast exams. A clinical breast exam by your physician is recommended on an annual basis. This exam should not preclude additional follow-up of suspicious palpable abnormalities. Note on Mindi scores and lifetime risk: 1. A Mindi score greater than 3% is considered moderate risk. If this is the case, consider specialist referral to assess eligibility for a risk reducing agent. 2. If overall lifetime risk for the development of breast cancer is 20% or higher, the patient may qualify for future screening with alternating mammogram and breast MRI. Electronically signed and approved by: Agustín Norton DO
== END | disposition home or self-care (01) ==
LOC: RADMAMWWP 07:29
PROVIDERS: ATTEND Family Medicine
DX: Z12.31 Encounter for screening mammogram for malignant neoplasm of breast (principal); Z78.0 Asymptomatic menopausal state
CPT/HCPCS: 77067

== ENCOUNTER 2023-09-03 06:55 | Day surgery (SDC) | payer OTHER ==
[2023-09-03] MEDS ORDERED: LIDOCAINE 1% (10MG/ML) FOR IV START INTRADERMA ONE (07:31)
[2023-09-03 07:34] LABS: Glucose,Whole Blood 118 mg/dL (70-110)
[2023-09-03] MEDS ORDERED: LIDOCAINE 1% INJ 10MG/ML (20 ML MDV) ONE (07:37)
[2023-09-03] MEDS ORDERED: MIDAZOLAM 2 MG/2 ML VIAL ONE (07:37)
[2023-09-03] MEDS ORDERED: PROPOFOL 10 MG/ML 20 ML VIAL IV ONE (07:37)
[2023-09-03 07:44] VITALS: TEMP 97.7
--- NOTE | 2023-09-03 07:45 | P.GSHP ---
History of Present Illness H&P Date: 09/03/23 CHIEF COMPLAINT: Colon screen HISTORY OF PRESENT ILLNESS: The patient is a 63-year-old female who presents for colon screen. Lower endoscopy was offered for further evaluation and management. PAST MEDICAL HISTORY: Please see list. PAST SURGICAL HISTORY: Please see list. MEDICATIONS: Please see list. ALLERGIES: Please see list. SOCIAL HISTORY: No illicit drug use FAMILY HISTORY: No reports of Crohn disease or ulcerative colitis. REVIEW OF ORGAN SYSTEMS: CONSTITUTIONAL: No reports of fevers or chills. PHYSICAL EXAM: VITAL SIGNS: Stable GENERAL: Well-developed pleasant in no acute distress. HEENT: No scleral icterus. Extraocular movements grossly intact. Moist buccal mucosa. NECK: Supple without lymphadenopathy. CHEST: Unlabored respirations. Equal bilateral excursions. CARDIOVASCULAR: Regular rate and rhythm. Distal 2+ pulses. ABDOMEN: Soft, nontender, nondistended. MUSCULOSKELETAL: No clubbing, cyanosis, or edema. ASSESSMENT: 1. Colon screen. PLAN: 1. Recommend proceeding with a lower endoscopy Past Medical History Past Medical History: Asthma, Diabetes Mellitus, GERD/Reflux, Hypertension, Osteoarthritis (OA), Sleep Apnea/CPAP/BIPAP Additional Past Medical History / Comment(s): Does not use CPAP, hx. colon polyps History of Any Multi-Drug Resistant Organisms: None Reported Past Surgical History: Appendectomy, Orthopedic Surgery Additional Past Surgical History / Comment(s): right big toe fusion. pain clinic procedures, colonoscopies Past Anesthesia/Blood Transfusion Reactions: No Reported Reaction Smoking Status: Former smoker - Past Family History Mother Family Medical History: No Reported History Medications and Allergies Home Medications Medication Instructions Recorded Confirmed Type Omeprazole [PriLOSEC] 20 mg PO AC-BRKFST 09/16/14 09/03/23 History amLODIPine [Norvasc] 10 mg PO QAM 09/16/14 09/03/23 History Albuterol Sulfate [Proair Hfa] 1 - 2 puff INHALATION Q6HR PRN 03/26/18 09/03/23 History Cholecalciferol (Vitamin D3) 2,000 unit PO DAILY 03/26/18 09/03/23 History [Vitamin D3] Tina-3 Fatty Acids/Fish Oil [Fish 1 tab PO DAILY 03/26/18 09/03/23 History Oil 1,000 mg Softgel] Montelukast Sodium [Singulair] 10 mg PO DAILY 09/21/21 09/03/23 History Atorvastatin [Lipitor] 20 mg PO DAILY 08/29/23 09/03/23 History Dulaglutide [Trulicity] 1.5 mg SQ TU 08/29/23 09/03/23 History Triamterene-Hctz 37.5-25Mg 1 cap PO DAILY 08/29/23 09/03/23 History [Dyazide 37.5-25 Capsule] resveratroL [Resveratrol] 250 mg PO DAILY 08/29/23 09/03/23 History Allergies Allergy/AdvReac Type Severity Reaction Status Date / Time sulfamethoxazole Allergy Itching Verified 09/03/23 07:18 [From Bactrim] trimethoprim [From Bactrim] Allergy Itching Verified 09/03/23 07:18 Surgical - Exam Vital Signs Temp Pulse Resp BP Pulse Ox 97.7 F 81 18 103/59 99 09/03/23 07:25 09/03/23 07:25 09/03/23 07:25 09/03/23 07:25 09/03/23 07:25 Results - Labs Abnormal Lab Results - Last 24 Hours (Table) 09/03/23 Range/Units 07:31 POC Glucose (mg/dL) 118 H (70-110) mg/dL
[2023-09-03 08:23] VITALS: BP 112/57; PULSE 75; RESP 16
--- NOTE | 2023-09-03 08:31 | P.PCN ---
Date of Procedure: 09/03/23 Description of Procedure: PREOPERATIVE DIAGNOSIS: Personal history of colon polyps Colonoscopy screening POSTOPERATIVE DIAGNOSIS: Tubular adenoma cecum Tubular adenoma ascending colon OPERATION: Colonoscopy to the ileocecal valve and appendiceal orifice, cecum Colonoscopy with hot snare polypectomy SURGEON: Leisa Moreno MD. ANESTHESIA: MAC. INDICATIONS: The patient is an 63-year-old male who presents personal history of colon polyps. Last colonoscopy less than 5 years. Benefits and risks were described and informed consent was obtained. DESCRIPTION OF PROCEDURE: The patient had undergone Sutab prep. The patient had been brought into the operating room and laid in the left lateral decubitus position. After adequate intravenous sedation, the rectum was examined with 2% lidocaine jelly. The prostate was unremarkable. No external hemorrhoids were encountered. The rectal tone was within normal limits. No lesions were palpated in the rectal vault. An Olympus colonoscope was advanced until the cecum, ileocecal valve and appendiceal orifice were clearly viewed. The prep was fair. No sigmoid diverticulosis was encountered. The sigmoid colon was highly redundant requiring abdominal wall pressure Colonic polyps were found and removed. No evidence of focal colitis was found. Retroflexion of the scope demonstrated grade 1 internal hemorrhoids without active bleeding or inflammation. The colon was desufflated. The patient had tolerated the procedure well. Withdrawal time was over 6 minutes. FINDINGS: Aronchick preparation quality scale 2+ (1-5) Internal hemorrhoids, grade 1 No external hemorrhoids No arteriovenous malformations. No sigmoid diverticulosis Removal of 3 polyps: - Snare polypectomy cecum 2, 3 to 5 mm tubulovillous adenoma - Snare polypectomy ascending colon, 6 mm flat villous adenoma polyp. No focal colitis. RECOMMENDATIONS: Repeat colonoscopy in 3 years, 2025 Plan - Discharge Summary Discharge Rx Participant: No New Discharge Prescriptions: Continue amLODIPine [Norvasc] 10 mg PO QAM Omeprazole [PriLOSEC] 20 mg PO AC-BRKFST Albuterol Sulfate [Proair Hfa] 1 - 2 puff INHALATION Q6HR PRN PRN Reason: sob Atorvastatin [Lipitor] 20 mg PO DAILY Triamterene-Hctz 37.5-25Mg [Dyazide 37.5-25 Capsule] 1 cap PO DAILY Dulaglutide [Trulicity] 1.5 mg SQ TU Montelukast Sodium [Singulair] 10 mg PO DAILY resveratroL [Resveratrol] 250 mg PO DAILY Discontinued Cholecalciferol (Vitamin D3) [Vitamin D3] 2,000 unit PO DAILY [place]-3 Fatty Acids/Fish Oil [Fish Oil 1,000 mg Softgel] 1 tab PO DAILY Discharge Medication List Omeprazole [PriLOSEC] 20 mg PO AC-BRKFST 09/16/14 [History] amLODIPine [Norvasc] 10 mg PO QAM 09/16/14 [History] Albuterol Sulfate [Proair Hfa] 1 - 2 puff INHALATION Q6HR PRN 03/26/18 [History] Montelukast Sodium [Singulair] 10 mg PO DAILY 09/21/21 [History] Atorvastatin [Lipitor] 20 mg PO DAILY 08/29/23 [History] Dulaglutide [Trulicity] 1.5 mg SQ TU 08/29/23 [History] Triamterene-Hctz 37.5-25Mg [Dyazide 37.5-25 Capsule] 1 cap PO DAILY 08/29/23 [History] resveratroL [Resveratrol] 250 mg PO DAILY 08/29/23 [History] Follow up Appointment(s)/Referral(s): Leisa Moreno MD [STAFF PHYSICIAN] - As Needed Patient Instructions/Handouts: Colorectal Polyps (GEN) Activity/Diet/Wound Care/Special Instructions: DO NOT RESUME FISH OIL AND VITAMIN D FOR 5 DAYS DUE TO RISK OF BLEEDING. Repeat colonoscopy 3 years, 2025 Discharge Disposition: HOME SELF-CARE
== END 2023-09-03 08:55 | disposition home or self-care (01) ==
LOC: ORWHC2ENDO 06:55
PROVIDERS: ATTEND Surgery Plastic and Reconstructive Surgery
DX: Z12.11 Encounter for screening for malignant neoplasm of colon (principal); D12.0 Benign neoplasm of cecum; D12.2 Benign neoplasm of ascending colon; K64.0 First degree hemorrhoids; J45.909 Unspecified asthma, uncomplicated; E11.9 Type 2 diabetes mellitus without complications; K21.9 Gastro-esophageal reflux disease without esophagitis; I10 Essential (primary) hypertension; M19.90 Unspecified osteoarthritis, unspecified site; E66.01 Morbid (severe) obesity due to excess calories; G47.33 Obstructive sleep apnea (adult) (pediatric); Z86.010 Personal history of colon polyps; Z90.49 Acquired absence of other specified parts of digestive tract; Z87.891 Personal history of nicotine dependence; Z79.899 Other long term (current) drug therapy; Z88.1 Allergy status to other antibiotic agents; Z88.2 Allergy status to sulfonamides; Z79.85 Long-term (current) use of injectable non-insulin antidiabetic drugs; Z68.42 Body mass index [BMI] 45.0-49.9, adult
CPT/HCPCS: 88305; 45385; J2250; J2001; J2704

== ENCOUNTER → 2024-09-06 | Outpatient (CLI) | payer OTHER ==
--- NOTE | 2024-09-06 12:34 | XR ---
EXAMINATION TYPE: XR lumbar spine 2 or 3V DATE OF EXAM: 09/06/2024 CLINICAL HISTORY: Severe pain, history of ablation 2022. TECHNIQUE: Three views of the lumbar spine are submitted. COMPARISON: CT abdomen 12/23/2017 FINDINGS: There are 5 lumbar type vertebral bodies identified. The lumbar spine shows satisfactory alignment w ithout evidence of acute fracture or dislocation. Vertebral body heights are within normal limits. Disc space narrowing with endplate sclerosis and anterior osteophytosis at T12-L1. Lower lumbar spin e facet arthropathy. The overlying soft tissue appears unremarkable. IMPRESSION: 1. No acute fracture or dislocation is seen in the lumbar spine. 2. Degenerative disc disease most prominently at T12-L1. [facility], , 09/06/2024 12:31 PM
== END | disposition home or self-care (01) ==
LOC: RADXRMAIN 11:50
PROVIDERS: ATTEND Nurse Practitioner Family
DX: M51.369 Other intervertebral disc degeneration, lumbar region without mention of lumbar back pain or lower extremity pain (principal)
CPT/HCPCS: 72100

== ENCOUNTER → 2024-12-08 | Outpatient (CLI) | payer OTHER ==
--- NOTE | 2024-12-08 14:56 | CTL ---
EXAMINATION TYPE: CT Low Dose Lung DATE OF EXAM: 12/08/2024 11:48 AM COMPARISON: None. CLINICAL INDICATION: Female, 64 years old with history of Z12.2, F17.210, personal tobacco use, Histo ry of tobacco use. Current smoker with 35 pack-year history TECHNIQUE: Low dose computed tomography scan was performed through the chest at 1 mm thick sections a nd reconstructed images in multiple planes at 1 mm and [address] DLP: 147.5 mGycm, CT CTDI: 4.0 mGy, Automated exposure control for dose reduction was used. CT DIAGNOSTIC QUALITY: Satisfactory FINDINGS: The heart is upper limits of normal in size with trace anterior pericardial fluid measuring 5 mm thic k. Mild RCA coronary artery calcifications. Aorta normal caliber with mild atherosclerotic arch calcifications and conventional arterial vessel b ranching anatomy. No thoracic lymphadenopathy by CT size criteria. Some minimal strandy atelectasis of the lower lungs. Mild diffuse bronchial wall thickening. Mild emp hysematous change. No consolidation or pleural effusion. 4 mm subpleural pulmonary nodule anterolateral right midlung, axial image 118. 3 mm subpleural pulmonary nodule posterolateral left upper lobe, axial image 52. No suspicious pulmonary nodules. There is a small hiatal hernia. Visualized upper abdomen otherwise shows no gross abnormality. Bones: Mild degenerative disc disease lower thoracic spine. IMPRESSION: 1. LungRADS 2, benign. A couple tiny nodules measuring 4 mm or smaller on baseline screening. 2. COPD with mild emphysema. Recommend smoking cessation. 3. Small hiatal hernia. CT LUNG RAD AND CT CHEST RECOMMENDATION: Lung-Rad 2 Benign Appearance or Behavior: Continue annual sc reening with LDCT in 12 months. S Modifier (other clinically significant findings): None [facility], Workstation: [employer] [place], 12/08/2024 2:53 PM
== END | disposition home or self-care (01) ==
LOC: RADCTMAIN 11:01
PROVIDERS: ATTEND Family Medicine
DX: Z12.2 Encounter for screening for malignant neoplasm of respiratory organs (principal); F17.210 Nicotine dependence, cigarettes, uncomplicated; J44.9 Chronic obstructive pulmonary disease, unspecified; K44.9 Diaphragmatic hernia without obstruction or gangrene; R91.8 Other nonspecific abnormal finding of lung field; J43.9 Emphysema, unspecified
CPT/HCPCS: 71271